=== PATIENT | female | born 1975 | race Hispanic/Latino ===

== ENCOUNTER 2020-04-16 13:28 | Emergency (ER) | payer BC, MEDICAID ==
[2020-04-16] MEDS ORDERED: KETOROLAC TROMETHAMINE 60 MG/2 ML VIAL ONE (13:56)
== END 2020-04-16 14:29 | disposition home or self-care (01) ==
LOC: EDH 13:28
DX: S63.617A Unspecified sprain of left little finger, initial encounter (principal); J45.909 Unspecified asthma, uncomplicated; Z98.890 Other specified postprocedural states; Z72.0 Tobacco use; Z88.0 Allergy status to penicillin; X58.XXXA Exposure to other specified factors, initial encounter; Y93.89 Activity, other specified; Y92.89 Other specified places as the place of occurrence of the external cause; Y99.8 Other external cause status
CPT/HCPCS: 29130; 73130; 96372; 99284; J1885

== ENCOUNTER 2020-09-06 20:45 | Emergency (ER) | payer BC ==
[2020-09-06] MEDS ORDERED: KETOROLAC TROMETHAMINE 60 MG/2 ML VIAL ONE (21:20)
[2020-09-06 21:21] LABS: APPEARANCE,URINE Clear (CLEAR); BILIRUBIN,URINE Negative (NEGATIVE); COLOR,URINE Yellow (YELLOW); GLUCOSE, URINE (UA) TRACE mg/dL (NEGATIVE); KETONES,URINE Negative (NEGATIVE); LEUKOCYTE ESTERASE ,URINE Negative (NEGATIVE); NITRATE,URINE Negative (NEGATIVE); OCCULT BLOOD,URINE Small (NEGATIVE); PH,URINE 5.5 (5.0-8.0); PROTEIN,URINE Negative (NEGATIVE)
[2020-09-06] MEDS ORDERED: DIAZEPAM 5 MG TABLET ONE (21:21)
[2020-09-06] MEDS ORDERED: HYDROCODONE/ACETAMINOPHEN 10/325 MG TAB ONE (21:21)
[2020-09-06 21:38] LABS: BACTERIA,URINE Rare /HPF (None Seen); MUCUS,URINE Few LPF (None Seen); SQUAMOUS EPITHELIAL CELL,UR Moderate /HPF (0-2); WBC,URINE 0-1 /HPF (0-1)
== END 2020-09-06 23:21 | disposition home or self-care (01) ==
LOC: EDH 20:45
DX: M54.42 Lumbago with sciatica, left side (principal); J45.909 Unspecified asthma, uncomplicated; Z98.890 Other specified postprocedural states; Z72.0 Tobacco use; Z88.0 Allergy status to penicillin; Z91.041 Radiographic dye allergy status; V49.59XA Passenger injured in collision with other motor vehicles in traffic accident, initial encounter; Y93.89 Activity, other specified; Y92.488 Other paved roadways as the place of occurrence of the external cause; Y99.8 Other external cause status
CPT/HCPCS: 72100; 81001; 81025; 96372; 99284; J1885

== ENCOUNTER 2020-10-27 00:44 | Emergency (ER) | payer BC ==
[~2020-10-27] VITALS: Ht 165.1 cm; Wt 87.5 kg
== END 2020-10-27 02:55 | disposition left against medical advice (07) ==
LOC: EDH 00:44
DX: M25.552 Pain in left hip (principal); Z53.21 Procedure and treatment not carried out due to patient leaving prior to being seen by health care provider

== ENCOUNTER 2021-03-01 18:38 | Emergency (ER) | payer BC, OTHER ==
[~2021-03-01] VITALS: Ht 165.1 cm; Wt 81.6 kg
[2021-03-01] MEDS ORDERED: ONDANSETRON 4MG INJ IVP ONE (20:00)
[2021-03-01] MEDS ORDERED: FAMOTIDINE 20MG VIAL IV ONE (20:00)
[2021-03-01 20:31] LABS: APPEARANCE,URINE Clear (CLEAR); BILIRUBIN,URINE Negative (NEGATIVE); COLOR,URINE Yellow (YELLOW); GLUCOSE, URINE (UA) Negative (NEGATIVE); KETONES,URINE Negative (NEGATIVE); LEUKOCYTE ESTERASE ,URINE Negative (NEGATIVE); NITRATE,URINE Negative (NEGATIVE); OCCULT BLOOD,URINE Small (NEGATIVE); PH,URINE 5.5 (5.0-8.0); PROTEIN,URINE Negative (NEGATIVE)
[2021-03-01 20:35] LABS: HCG,QUAL RESULT NEGATIVE (NEGATIVE)
[2021-03-01 20:41] LABS: BACTERIA,URINE Few /HPF (None Seen); CALCIUM OXALATE CRYSTALS,UR Few /LPF (None Seen); MUCUS,URINE Moderate LPF (None Seen); SQUAMOUS EPITHELIAL CELL,UR Few /HPF (0-2); WBC,URINE 0-1 /HPF (0-1)
[2021-03-01 20:49] LABS: BASOPHILS % (AUTO) 0.5 % (0.0-5.0); EOSINOPHILS % (AUTO) 1.7 % (0.0-8.0); HEMATOCRIT 34.5 % (36-48); LYMPHOCYTES % (AUTO) 28.9 % (21.0-51.0); MEAN CORPUSCULAR HEMOGLOBIN 29.8 pg (27.0-33.0); MEAN CORPUSCULAR HGB CONC 33.9 g/dL (32.0-36.0); MONOCYTES % (AUTO) 6.9 % (3.0-13.0); NEUTROPHILS % (AUTO) 61.6 % (40.0-77.0); PLATELET COUNT (AUTO) 331 K/uL (130-400); RED BLOOD CELL COUNT(AUTO) 3.92 MIL/uL (4.00-5.50); RED CELL DISTRIBUTION WIDTH 13.4 % (11.0-15.5); WHITE BLOOD COUNT (AUTO) 10.2 K/uL (4.8-10.8)
[2021-03-01 21:01] LABS: CREATININE 0.7 mg/dL (0.5-1.5); POTASSIUM 3.5 mmol/L (3.5-5.1)
[2021-03-01 21:05] LABS: ALBUMIN 3.4 g/dL (3.5-5.0); BILIRUBIN,TOTAL 0.1 mg/dL (0.2-1.0); TOTAL PROTEIN, SERUM 7.5 g/dL (6.0-8.3)
[2021-03-01] MEDS ORDERED: FAMO-136 PO (21:21)
[2021-03-01] MEDS ORDERED: ONDA4TAB4 PO (21:21)
[2021-03-01 21:35] VITALS: BP 108/58
== END 2021-03-01 21:36 | disposition home or self-care (01) ==
LOC: EDH 18:38
DX: A08.4 Viral intestinal infection, unspecified (principal); B34.9 Viral infection, unspecified; Z20.822 Contact with and (suspected) exposure to COVID-19
CPT/HCPCS: 36415; 80053; 81001; 81025; 83690; 85025; 87635; 96374; 96375; 99284; C9803; J2405; J3490

== ENCOUNTER 2021-05-19 11:25 | Emergency (ER) | payer OTHER ==
[~2021-05-19] VITALS: Ht 165.1 cm; Wt 83.9 kg
[~2021-05-19 11:25] MED LIST: FAMO-136 PO; ONDA4TAB4 PO
[2021-05-19] MEDS ORDERED: PRED20TA3 PO (15:56)
[2021-05-19] MEDS ORDERED: ALBU90AE2 IH (15:56)
[2021-05-19] MEDS ORDERED: BENZ-39 PO (15:56)
[2021-05-19 16:54] VITALS: BP 108/67
== END 2021-05-19 16:57 | disposition home or self-care (01) ==
LOC: EDH 11:25
DX: B34.9 Viral infection, unspecified (principal); Z20.822 Contact with and (suspected) exposure to COVID-19; J45.909 Unspecified asthma, uncomplicated; F17.210 Nicotine dependence, cigarettes, uncomplicated; Z79.899 Other long term (current) drug therapy
CPT/HCPCS: 87635; 87804 ×2; 99283; C9803

== ENCOUNTER 2022-05-18 15:51 | Emergency (ER) | payer OTHER ==
[~2022-05-18] VITALS: Ht 165.1 cm; Wt 77.1 kg
[~2022-05-18 15:51] MED LIST changes: +ALBU90AE2 IH; +BENZ-39 PO; +PRED20TA3 PO
[2022-05-18] MEDS ORDERED: FLUT16H NASAL (17:42)
[2022-05-18] MEDS ORDERED: BENZ200C53 PO (17:42)
[2022-05-18] MEDS ORDERED: D-ME118S47 PO (17:42)
[2022-05-18 18:00] VITALS: BP 115/74
[2022-05-18] MEDS ORDERED: NIRM1TAB PO (18:08)
[2022-05-18] MEDS ORDERED: ALBU90AE2 IH (18:14)
== END 2022-05-18 18:19 | disposition home or self-care (01) ==
LOC: EDH 15:51
DX: U07.1 COVID-19 (principal); B34.9 Viral infection, unspecified; J45.909 Unspecified asthma, uncomplicated
CPT/HCPCS: 99283; 87635; 87804 ×2; C9803

== ENCOUNTER 2023-03-18 17:45 | Emergency (ER) | payer OTHER ==
[~2023-03-18] VITALS: Ht 165.1 cm; Wt 79.4 kg
[~2023-03-18 17:45] MED LIST changes: +BENZ200C53 PO; +BROM118S48 PO; +FLUT16H NASAL; +NIRM1TAB PO
[2023-03-18 17:49] VITALS: BP 112/74; PULSE 93; RESP 18
[2023-03-18] MEDS ORDERED: DIAZEPAM 5 MG TABLET PO ONE (19:30)
[2023-03-18] MEDS ORDERED: KETOROLAC 30MG VIAL (30MG/ML) IM ONE (19:30)
[2023-03-18] MEDS ORDERED: NAPR-1180 PO (19:31)
== END 2023-03-18 19:46 | disposition home or self-care (01) ==
LOC: EDH 17:45
DX: M43.6 Torticollis (principal); J45.909 Unspecified asthma, uncomplicated; Z87.442 Personal history of urinary calculi; Z88.0 Allergy status to penicillin; Z79.899 Other long term (current) drug therapy; Z98.890 Other specified postprocedural states
CPT/HCPCS: 99283; 96372; J1885